=== PATIENT | male | born 1955 | race Two or more races ===

== ENCOUNTER 2017-07-07 05:53 | Inpatient (IN) | payer MEDICARE, MEDICAID ==
[~2017-07-07] VITALS: Ht 181.6 cm; Wt 90.7 kg
[2017-07-07] VITALS (15 sets, daily range): BP systolic 101–138; BP diastolic 65–86
[~2017-07-07 05:53] MED LIST: CIALIS5 MG PO; IBUPROFEN600 MG ORAL; NAPROXEN250 M1 PO; OMEPRAZOLE40 M1 ORAL; WELLBUTRIN XL150 MG ORAL
[2017-07-07] MEDS ORDERED: ceFAZolin 1gm in D5W 55ml IVPB ONE (06:00)
--- NOTE | 2017-07-07 07:16 | Anethesia Preoperative Eval ---
Anesthesia Pre-op PMH/ROS General Date of Evaluation: Jul 07, 2017 Anesthesiologist: Eduardo ASA Score: ASA 2 Mallampati Score Class I : Soft palate, uvula, fauces, pillars visible Class II: Soft palate, uvula, fauces visible Class III: Soft palate, base of uvula visible Class IV: Only hard plate visible Mallampati Classification: Class II Surgeon: Ximena Diagnosis: BPH Surgical Procedure: TURP Anesthesia History: none Family History: no anesthesia problems Allergies: Coded Allergies: MEPERIDINE (Verified Allergy, Severe, 07/06/17) SWELLING OF PANCREAS Medications: see eMAR Past Medical History Cardiovascular: Denies: HTN, CAD, TN, valve dz, arrhythmia, other Pulmonary: Denies: asthma, COPD, KATEY, other Gastrointestinal/Genitourinary: Reports: GERD, other - BPH, Denies: CRI, ESRD Neurologic/Psychiatric: Reports: depression/anxiety, Denies: dementia, CVA, TIA, other Endocrine: Denies: DM, hypothyroidism, steroids, other HEENT: Denies: cataract (L), cataract (R), glaucoma, OSAGE (L), OSAGE (R), other Hematology/Immune: Denies: anemia, DVT, bleeding disorder, other Musculoskeletal/Integumentary: Denies: OA, RA, DJD, DDD, edema, other Other: obesity PSxH Narrative: lap appy, lap bailey, ex-lap Anesthesia Pre-op Phys. Exam Physician Exam Last Vital Signs Date Time Temp Pulse Resp B/P (MAP) Pulse Ox O2 Delivery O2 Flow Rate FiO2 07/07/17 06:30 98.8 70 17 125/71 97 Room Air Constitutional: NAD Cardiovascular: RRR Respiratory: CTA Airway Exam Mallampati Score: Class II MO: full ROM: full Anesthesia Pre-op A/P Labs see chart Studies Pre-op Studies: EKG - sr Risk Assessment & Plan Assessment: ASA II Plan: GA Status Change Before Surgery: No Pre-Antibiotics Drug: Ancef 2g Given Within 1 Hr of Incision: Yes Time Given: 07:45 CHANDNI BAÑUELOS M.D. Jul 07, 2017 07:16
[2017-07-07] MEDS ORDERED: NS Irrig 4000ml IRRIG ONE ×3 (07:30→10:04)
[2017-07-07] MEDS ORDERED: Lidocaine 1% MPF 10mg/ml 5ml ONE (07:30)
[2017-07-07] MEDS ORDERED: Midazolam 2mg/2ml Inj ONE (07:30)
[2017-07-07] MEDS ORDERED: fentaNYL 100 mcg/2 mL IV ONE (07:30)
[2017-07-07] MEDS ORDERED: Metoclopramide 10mg/2ml Inj ONE (07:30)
[2017-07-07] MEDS ORDERED: Dexamethasone 4mg/ml vial ONE (07:30)
[2017-07-07] MEDS ORDERED: LR 1000ml ONE (07:30)
[2017-07-07] MEDS ORDERED: Neostigmine 1mg/ml 10ml Inj ONE (07:30)
[2017-07-07] MEDS ORDERED: Sodium Chloride 10ml vial INJ ONE (07:30)
[2017-07-07] MEDS ORDERED: Propofol 200mg/20ml IV ONE (07:30)
[2017-07-07] MEDS ORDERED: Zemuron 50mg/5ml Inj IV ONE (07:30)
[2017-07-07] MEDS ORDERED: Sterile Water Irrig 1000ml IRRIG ONE (07:30)
--- NOTE | 2017-07-07 07:48 | Pre-Procedure Note/Attestation ---
Pre-Procedure Note/Attestation Complete Prior to Procedure Planned Procedure: not applicable Procedure Narrative: TURP Indications for Procedure Pre-Operative Diagnosis: BPH Attestation I attest that I discussed the nature of the procedure; its benefits; risks and complications; and alternatives (and the risks and benefits of such alternatives ), prior to the procedure, with the patient (or the patient's legal credit and collections representative). I attest that, if there was a reasonable possibility of needing a blood transfusion, the patient (or the patient's legal credit and collections representative) was given the [facility] standardized written summary, pursuant to the [place] Blood Safety Act ([place] Health and Safety Code # 1645, as amended). I attest that I re-evaluated the patient just prior to the surgery and that there has been no change in the patient's H&P, except as documented below: Vasyl Bueno MD Jul 07, 2017 07:48
[2017-07-07] MEDS ORDERED: Sterile Water For Inj 1000ml IV ONE (08:00)
[2017-07-07] MEDS ORDERED: LR 1000ml 1,000 ML IVLG SCH (08:08)
--- NOTE | 2017-07-07 08:08 | Immediate Post-Op Evaluation ---
Immediate Post-Op Evalulation Immediate Post-Op Evalulation Procedure: TURP Date of Evaluation: Jul 07, 2017 Time of Evaluation: 09:58 IV Fluids: 1.5L Blood Products: 0 Estimated Blood Loss: 350 Urinary Output: 0 Blood Pressure Systolic: 102 Blood Pressure Diastolic: 68 Pulse Rate: 86 Respiratory Rate: 16 O2 Sat by Pulse Oximetry: 99 Temperature (Fahrenheit): 97 Pain Score (1-10): 0 Nausea: No Vomiting: No Complications 0 Patient Status: awake, reacts, patent, none Hydration Status: adequate Drug: Ancef 2g Given Within 1 Hr of Incision: Yes Time Given: 07:45 CHANDNI BAÑUELOS M.D. Jul 07, 2017 08:08
[2017-07-07] MEDS ORDERED: LORazepam Inj 2mg/ml 1ml IV PRN (08:15)
[2017-07-07] MEDS ORDERED: Hydromorphone 0.5mg/0.5ml inj IVP PRN (08:15)
[2017-07-07] MEDS ORDERED: DiphenhydrAMINE 50mg/ml Inj IVP PRN (08:15)
[2017-07-07] MEDS ORDERED: Metoclopramide 10mg/2ml Inj IVP PRN (08:15)
[2017-07-07] MEDS ORDERED: Midazolam 2mg/2ml Inj IVP PRN (08:15)
[2017-07-07] MEDS: D5 1/2NS w/KCl 20mEq 1,000 ML IV SCH ×2 (09:35→19:35)
--- NOTE | 2017-07-07 09:39 | Brief Operative Note ---
Immediate Post Operative Note Operative Note Pre-op Diagnosis: BPH Procedure: TURP Post-op Diagnosis: same Post-op Diagnosis: same as pre-op Surgeon: Shashank Bueno Anesthesia: general Specimen: yes Complications: none Condition: stable Fluids: 500 Estimated Blood Loss: minimal Implant(s) used?: No Vasyl Bueno MD Jul 07, 2017 09:39
[2017-07-07] MEDS ORDERED: HYDROmorphone 1mg/ml Carpuject IVP PRN (09:45)
[2017-07-07 10:23] LABS: BASOPHILS % (AUTO) 0.3 % (0.0-2.0); EOSINOPHILS % (AUTO) 0.6 % (0.0-3.0); LYMPHOCYTES % (AUTO) 16.6 % (20.0-45.0); MEAN CORPUSCULAR HEMOGLOBIN 29.8 PG (27.0-31.0); MEAN CORPUSCULAR HGB CONC 31.7 G/DL (32.0-36.0); MEAN CORPUSCULAR VOLUME 94 FL (80-99); MONOCYTES % (AUTO) 3.1 % (1.0-10.0); NEUTROPHILS % (AUTO) 79.4 % (45.0-75.0); PLATELET COUNT 205 K/UL (150-450); RED BLOOD COUNT 4.36 M/UL (4.70-6.10); RED CELL DISTRIBUTION WIDTH 11.2 % (11.6-14.8); WHITE BLOOD COUNT 17.8 K/UL (4.8-10.8)
[2017-07-07 10:33] LABS: ANION GAP 7 mmol/L (5-15); CALCIUM 7.7 MG/DL (8.5-10.1); CARBON DIOXIDE 26 MMOL/L (21-32); CHLORIDE 110 MMOL/L (98-107); CREATININE 1.2 MG/DL (0.55-1.30); GLOMERULAR FILTRATION RATE > 60 mL/min (>60); POTASSIUM 4.5 MMOL/L (3.5-5.1); SODIUM 142 MMOL/L (136-145)
--- NOTE | 2017-07-07 14:53 | History and Physical ---
History of Present Illness General Date patient seen: Jul 07, 2017 Present Illness HPI 62 year old male with hx of BPH, depression, had a TURP today and admitted for postop care. Pt has a Esposito and needs continuous irrigation. Allergies: Coded Allergies: MEPERIDINE (Verified Allergy, Severe, 07/06/17) SWELLING OF PANCREAS Medication History Scheduled Bupropion Hcl* (Wellbutrin Xl*), 150 MG ORAL DAILY, (Reported) Ibuprofen* (Motrin*), 600 MG ORAL FOUR TIMES A DAY, (Reported) Naproxen (Naproxen), 500 MG PO BID, (Reported) Omeprazole (Omeprazole), 40 MG ORAL DAILY, (Reported) Tadalafil (Cialis), 5 MG PO DAILY, (Reported) Patient History Healthcare decision maker MICHAEL ANDRADE-SISTER- Resuscitation status Full Code Advanced Directive on File Past Medical/Surgical History Past Medical/Surgical History: (1) BPH (benign prostatic hyperplasia) Review of Systems All Other Systems: negative except mentioned in HPI Physical Exam General Appearance: WD/WN HEENT: normocephalic, atraumatic Neck: non-tender, normal alignment Breasts: no masses Cardiovascular/Chest: normal peripheral pulses Abdomen: normal bowel sounds, non tender Genitourinary/Rectal: normal genital exam, normal rectal exam Last 24 Hour Vital Signs Date Time Temp Pulse Resp B/P (MAP) Pulse Ox O2 Delivery O2 Flow Rate FiO2 07/07/17 13:00 98.7 81 19 124/75 98 07/07/17 12:00 97.7 76 19 128/78 99 07/07/17 11:30 97.6 07/07/17 11:30 97.3 63 18 120/78 99 07/07/17 11:00 97.6 66 14 136/84 99 Nasal Cannula 3.0 07/07/17 10:50 68 14 138/80 99 Nasal Cannula 3.0 07/07/17 10:40 68 14 133/86 99 Nasal Cannula 3.0 07/07/17 10:30 69 13 120/74 99 Nasal Cannula 3.0 07/07/17 10:20 76 18 118/81 99 Nasal Cannula 3.0 07/07/17 10:15 72 19 118/77 99 Nasal Cannula 3.0 07/07/17 10:05 74 17 101/78 97 Nasal Cannula 3.0 07/07/17 10:00 77 14 106/67 96 Nasal Cannula 3.0 07/07/17 09:56 86 16 99 07/07/17 09:53 97.0 79 14 112/72 98 Nasal Cannula 3.0 07/07/17 06:30 98.8 70 17 125/71 97 Room Air Intake and Output 07/07/17 07/08/17 19:00 07:00 Intake Total 2500 ml Output Total 2775 ml Balance -275 ml Intake IV Total 2500 ml Output Urine Total 2425 ml Estimated Blood Loss 350 ml # Voids 2 Laboratory Tests Test 07/07/17 10:15 White Blood Count 17.8 K/UL (4.8-10.8) H Red Blood Count 4.36 M/UL (4.70-6.10) L Hemoglobin 13.0 G/DL (14.2-18.0) L Hematocrit 40.9 % (42.0-52.0) L Mean Corpuscular Volume 94 FL (80-99) Mean Corpuscular Hemoglobin 29.8 PG (27.0-31.0) Mean Corpuscular Hemoglobin Concent 31.7 G/DL (32.0-36.0) L Red Cell Distribution Width 11.2 % (11.6-14.8) L Platelet Count 205 K/UL (150-450) Mean Platelet Volume 8.0 FL (6.5-10.1) Neutrophils (%) (Auto) 79.4 % (45.0-75.0) H Lymphocytes (%) (Auto) 16.6 % (20.0-45.0) L Monocytes (%) (Auto) 3.1 % (1.0-10.0) Eosinophils (%) (Auto) 0.6 % (0.0-3.0) Basophils (%) (Auto) 0.3 % (0.0-2.0) Sodium Level 142 MMOL/L (136-145) Potassium Level 4.5 MMOL/L (3.5-5.1) Chloride Level 110 MMOL/L (98-107) H Carbon Dioxide Level 26 MMOL/L (21-32) Anion Gap 7 mmol/L (5-15) Blood Urea Nitrogen 24 mg/dL (7-18) H Creatinine 1.2 MG/DL (0.55-1.30) Estimat Glomerular Filtration Rate > 60 mL/min (>60) Glucose Level 119 MG/DL (74-106) H Calcium Level 7.7 MG/DL (8.5-10.1) L Height (Feet): 5 Height (Inches): 11.50 Weight (Pounds): 200 Medications Current Medications Medications (Trade) Dose Ordered Sig/Navin Route PRN Reason Start Time Stop Time Status Last Admin Dose Admin Acetaminophen (Tylenol) 650 mg Q6H PRN ORAL Mild Pain (Pain Scale 1-3) 07/07/17 09:45 08/06/17 09:44 Acetaminophen/ Hydrocodone Bitart ([place] 5/325) 1 tab Q4H PRN ORAL Moderate Pain (Pain Scale 4-6) 07/07/17 09:45 07/14/17 09:44 Cefazolin Sodium 50 ml @ 100 mls/hr Q8H IV 07/07/17 15:00 07/07/17 23:29 Dextrose/ Electrolytes 1,000 ml @ 100 mls/hr Q10H IV 07/07/17 09:35 08/06/17 09:34 Docusate Sodium (Colace) 100 mg TWICE A DAY ORAL 07/07/17 18:00 08/06/17 17:59 Hydromorphone HCl (Dilaudid) 1 mg Q3H PRN IVP pain score 4-6 07/07/17 09:45 07/14/17 09:44 Ondansetron HCl (Zofran) 4 mg Q6H PRN IVP Nausea & Vomiting 07/07/17 09:45 08/06/17 09:44 Temazepam (Restoril) 7.5 mg DAILYPRN PRN ORAL Insomnia 07/07/17 09:45 07/14/17 09:44 Assessment/Plan Problem List: (1) S/P TURP ICD Codes: Z90.79 - Acquired absence of other genital organ(s) SNOMED: 64288656, 585121251 (2) BPH (benign prostatic hyperplasia) ICD Codes: N40.0 - Benign prostatic hyperplasia without lower urinary tract symptoms SNOMED: 448109609 Assessment/Plan iv fluids frequent irrigation symptomatic treatment clear liquid diet for now. JAYLEEN JIMÉNEZ Jul 07, 2017 14:53
[2017-07-07] MEDS ORDERED: ceFAZolin sod 2 GM in D5W 110 ML IV SCH (15:00)
[2017-07-07] MEDS: Norco 5mg/325mg tab ORAL PRN ×2 (15:18→20:27)
[2017-07-07] MEDS: ceFAZolin 2gm/50ml Premix 50 ML IV SCH ×2 (15:19→23:14)
[2017-07-07] MEDS: Docusate 100mg cap ORAL SCH (17:31)
[2017-07-08] MEDS: Norco 5mg/325mg tab ORAL PRN ×3 (00:39→13:04)
[2017-07-08 00:48] VITALS: BP 101/61
[2017-07-08 04:22] VITALS: BP 107/66
[2017-07-08] MEDS: D5 1/2NS w/KCl 20mEq 1,000 ML IV SCH (05:51)
[2017-07-08 06:52] LABS: BASOPHILS % (AUTO) 0.3 % (0.0-2.0); EOSINOPHILS % (AUTO) 1.4 % (0.0-3.0); LYMPHOCYTES % (AUTO) 14.4 % (20.0-45.0); MEAN CORPUSCULAR HEMOGLOBIN 30.9 PG (27.0-31.0); MEAN CORPUSCULAR HGB CONC 33.7 G/DL (32.0-36.0); MEAN CORPUSCULAR VOLUME 92 FL (80-99); MEAN PLATELET VOLUME 8.2 FL (6.5-10.1); NEUTROPHILS % (AUTO) 76.9 % (45.0-75.0); PLATELET COUNT 195 K/UL (150-450); RED BLOOD COUNT 4.05 M/UL (4.70-6.10); WHITE BLOOD COUNT 13.2 K/UL (4.8-10.8)
[2017-07-08 07:04] LABS: ANION GAP 7 mmol/L (5-15); CALCIUM 8.5 MG/DL (8.5-10.1); CARBON DIOXIDE 28 MMOL/L (21-32); CHLORIDE 105 MMOL/L (98-107); CREATININE 1.2 MG/DL (0.55-1.30); GLOMERULAR FILTRATION RATE > 60 mL/min (>60); POTASSIUM 3.8 MMOL/L (3.5-5.1); SODIUM 140 MMOL/L (136-145)
[2017-07-08] MEDS: Sucralfate 1gm tab ORAL SCH ×2 (08:33→13:03)
[2017-07-08] MEDS: Docusate 100mg cap ORAL SCH (08:34)
[2017-07-08 09:00] VITALS: BP 122/74
[2017-07-08 12:00] VITALS: BP 139/92
--- NOTE | 2017-07-08 13:42 | Pulmonology Progress Note ---
Assessment/Plan Problems: (1) S/P TURP (2) BPH (benign prostatic hyperplasia) Assessment/Plan improving still bloody urine sabillon in place dc home with oral abx and analgesics. Subjective ROS Limited/Unobtainable: No HEENT: Repors: no symptoms Respiratory: Reports: no symptoms Allergies: Coded Allergies: MEPERIDINE (Verified Allergy, Severe, 07/06/17) SWELLING OF PANCREAS Objective Last 24 Hour Vital Signs Date Time Temp Pulse Resp B/P (MAP) Pulse Ox O2 Delivery O2 Flow Rate FiO2 07/08/17 12:00 97.6 84 18 139/92 96 07/08/17 09:02 97.0 07/08/17 09:00 97.0 83 17 122/74 97 Room Air 07/08/17 04:22 97.6 80 19 107/66 96 07/08/17 00:48 Room Air 07/08/17 00:48 97.9 80 18 101/61 94 07/07/17 20:45 97.1 78 18 107/67 96 07/07/17 20:45 Room Air 07/07/17 16:04 97.8 79 18 102/65 97 Intake and Output 07/08/17 07/09/17 19:00 07:00 Intake Total 1950 ml Output Total 3500 ml Balance -1550 ml Intake Oral 250 ml IV Total 200 ml Other 1500 ml Output Urine Total 3500 ml General Appearance: WD/WN HEENT: normocephalic, anicteric Respiratory/Chest: chest wall non-tender, lungs clear Cardiovascular: normal peripheral pulses, normal rate Abdomen: normal bowel sounds, no organomegaly Genitourinary: normal external genitalia Extremities: no clubbing Skin: no ulcers Neurologic/Psychiatric: no motor/sensory deficits Lymphatic: no neck adenopathy Laboratory Tests 07/08/17 05:25: White Blood Count 13.2H, Red Blood Count 4.05L, Hemoglobin 12.5L, Hematocrit 37.2L, Mean Corpuscular Volume 92, Mean Corpuscular Hemoglobin 30.9, Mean Corpuscular Hemoglobin Concent 33.7, Red Cell Distribution Width 11.0L, Platelet Count 195, Mean Platelet Volume 8.2, Neutrophils (%) (Auto) 76.9H, Lymphocytes (%) (Auto) 14.4L, Monocytes (%) (Auto) 7.0, Eosinophils (%) (Auto) 1.4, Basophils (%) (Auto) 0.3, Sodium Level 140, Potassium Level 3.8, Chloride Level 105, Carbon Dioxide Level 28, Anion Gap 7, Blood Urea Nitrogen 13, Creatinine 1.2, Estimat Glomerular Filtration Rate > 60, Glucose Level 139H, Calcium Level 8.5 Current Medications Medications (Trade) Dose Ordered Sig/Navin Route PRN Reason Start Time Stop Time Status Last Admin Dose Admin Acetaminophen (Tylenol) 650 mg Q6H PRN ORAL Mild Pain (Pain Scale 1-3) 07/07/17 09:45 08/06/17 09:44 Acetaminophen/ Hydrocodone Bitart ([place] 5/325) 1 tab Q4H PRN ORAL Moderate Pain (Pain Scale 4-6) 07/07/17 09:45 07/14/17 09:44 07/08/17 13:04 Dextrose/ Electrolytes 1,000 ml @ 100 mls/hr Q10H IV 07/07/17 09:35 08/06/17 09:34 07/08/17 05:51 Docusate Sodium (Colace) 100 mg TWICE A DAY ORAL 07/07/17 18:00 08/06/17 17:59 07/08/17 08:34 Hydromorphone HCl (Dilaudid) 1 mg Q3H PRN IVP pain score 4-6 07/07/17 09:45 07/14/17 09:44 Ondansetron HCl (Zofran) 4 mg Q6H PRN IVP Nausea & Vomiting 07/07/17 09:45 08/06/17 09:44 07/07/17 20:27 Pantoprazole (Protonix) 40 mg DAILY ORAL 07/08/17 09:00 08/07/17 08:59 07/08/17 08:34 Sucralfate (Carafate) 1 gm TID ORAL 07/08/17 09:00 08/07/17 08:59 07/08/17 13:03 Temazepam (Restoril) 7.5 mg DAILYPRN PRN ORAL Insomnia 07/07/17 09:45 07/14/17 09:44 JAYLEEN JIMÉNEZ Jul 08, 2017 13:42
--- NOTE | 2017-07-08 14:29 | 48 Hour Post Anesthesia Eval ---
Post Anesthesia Evaluation Procedure: TURP Date of Evaluation: Jul 08, 2017 Time of Evaluation: 14:30 Blood Pressure Systolic: 125 0: 63 Pulse Rate: 80 Respiratory Rate: 19 Temperature (Fahrenheit): 98 O2 Sat by Pulse Oximetry: 99 Airway: patent Nausea: No Vomiting: No Pain Intensity: 0 Hydration Status: adequate Mental Status/LOC: patient returned to baseline Post-Anesthesia Complications: none Follow-up care needed: patient intructions given Dmitry Duenas M.D. Jul 08, 2017 14:29
[2017-07-08] MEDS ORDERED: NORCO 5-325 TA1 EAC1 ORAL (15:25)
[2017-07-08] MEDS ORDERED: LEVOFLOXACIN250 MG ORAL (15:27)
[2017-07-08] MEDS ORDERED: COLACE100 MG ORAL (15:29)
[2017-07-08 16:00] VITALS: BP 116/74
[2017-07-08] MEDS ORDERED: LR 1000ml ONE (16:17)
[2017-07-08] MEDS ORDERED: NS Irrig 4000ml IRRIG ONE (16:17)
[2017-07-08] MEDS ORDERED: Tubing IV Secondary IV ONE (16:17)
--- NOTE | 2017-07-09 09:54 | Discharge Summary ---
Discharge Summary Hospital Course Date of Admission Jul 07, 2017 at 05:53 Date of Discharge Jul 08, 2017 at 16:30 Admitting Diagnosis HPI Yimi Oneil is a 62 year old male who was admitted on Jul 07, 2017 at 05:53 for Enlarged Prostate,Incomplete Bladder Emptying Hospital Course [id number] Discharge Discharge Disposition Patient was discharged to Home (01) Discharge Diagnoses: Nallely Ashby NP Jul 09, 2017 09:54
--- NOTE | 2017-07-09 22:00 | Discharge Summary 2 SIG ---
DATE OF ADMISSION: 07/07/2017 DATE OF DISCHARGE: 07/08/2017 SURGEON: Dr. Vasyl Bueno. BRIEF HOSPITAL COURSE: The patient is a 62-year-old male with history of BPH and depression, who was admitted on 07/07/2017, and underwent TURP by Dr. Bueno. Postoperatively, he was admitted to medical floor. He was given bladder irrigation and was placed on bed rest. He was given pain management. He was encouraged to use incentive spirometry. He complained of heart burn. He was given carafate and Protonix. Bloody urine eventually cleared. Bladder irrigation was discontinued. He was eventually discharged home with Esposito catheter. Leg bag was placed. He was advised to follow up with Dr. Bueno and to continue with p.o. antibiotic for five more days. FINAL DIAGNOSES: 1. Benign prostatic hypertrophy, status post transurethral resection of prostate. 2. Depression. DISCHARGE MEDICATIONS: Continue with levofloxacin 250 mg p.o. x5 days and [place] 5/325 q.8 hours p.r.n. pain. Continue with docusate and Wellbutrin XL 150 mg daily. Newton Salcedo M.D. I have been assigned to dictate discharge summary on this account and I was not involved in the patient's management. Nallely Ashby N.P. DR: Karsten JOB#: [id number] CC: SARA
--- NOTE | 2017-07-09 23:45 | Operative Note - Dictated ---
DATE OF OPERATION: 07/09/2017 PREOPERATIVE DIAGNOSES: 1. Benign prostatic hypertrophy. 2. Urinary retention. POSTOPERATIVE DIAGNOSES: 1. Benign prostatic hypertrophy. 2. Urinary retention. OPERATION: Transurethral resection of the prostate. SURGEON: Vasyl Bueno M.D. ANESTHESIA: General. FINDINGS: Enlarged prostate. INDICATION FOR SURGERY: Chronic BPH without improvement with medications. Treatment options were explained to him in great length including all potential complications and he signed the consent. DESCRIPTION OF PROCEDURE: He was brought to the operating room, placed in lithotomy position, and prepped and draped in standard fashion under general anesthesia. Resectoscope was introduced into the bladder and prostate was found and resected in all three quadrants, all the way to the verumontanum and prosthetic capsule. The chips were evacuated with LegCyte evacuator. Hemostasis with the button electrode and a 24 three-way Esposito catheter was placed and left indwelling. The patient tolerated the procedure well. Sponge count and instrument count was correct. Vasyl Bueno M.D. DR: Dago JOB#: [id number] CC:
== END 2017-07-08 16:30 | disposition home health service (06) | DRG 714 ==
LOC: SDSOVERFLO 05:53 → 3E 12:23
PROC: 0VT08ZZ Resection of Prostate, Via Natural or Artificial Opening Endoscopic (ICD-10-PCS; principal; 2017-07-08)
DX: N40.1 Benign prostatic hyperplasia with lower urinary tract symptoms (principal); F32.9 Major depressive disorder, single episode, unspecified; R33.8 Other retention of urine; F17.200 Nicotine dependence, unspecified, uncomplicated; Z88.8 Allergy status to other drugs, medicaments and biological substances
CPT/HCPCS: 36415; 80048; 85025; 87081; 94003; 94150; J2250; J2405; J2710; J2765

== ENCOUNTER 2020-06-05 05:14 | Inpatient (IN) | payer MEDICARE ==
[~2020-06-05] VITALS: Ht 180.3 cm; Wt 90.3 kg
[2020-06-05] VITALS (15 sets, daily range): BP systolic 110–157; BP diastolic 65–92
[~2020-06-05 05:14] MED LIST changes: +COLACE100 MG ORAL; +LEVOFLOXACIN250 MG ORAL; +NORCO 5-325 TA1 EAC1 ORAL
[2020-06-05] MEDS ORDERED: LIPITOR20 MG ORAL (05:57)
[2020-06-05] MEDS ORDERED: ceFAZolin sod 1 GM in NS 55 ML IVPB ONE (07:00)
[2020-06-05] MEDS ORDERED: Sodium Chloride 10ml vial INJ ONE (07:10)
[2020-06-05] MEDS ORDERED: Lidocaine 1% MPF 10mg/ml 5ml ONE (07:10)
[2020-06-05] MEDS ORDERED: fentaNYL 100 mcg/2 mL IV ONE (07:13)
[2020-06-05] MEDS ORDERED: Lidocaine 1% Plain 30 ml INJ ONE (07:14)
--- NOTE | 2020-06-05 07:14 | Anethesia Preoperative Eval ---
Anesthesia Pre-op PMH/ROS General Date of Evaluation: Jun 05, 2020 Time of Evaluation: 07:41 Anesthesiologist: Maulik ASA Score: ASA 3 Mallampati Score Class I : Soft palate, uvula, fauces, pillars visible Class II: Soft palate, uvula, fauces visible Class III: Soft palate, base of uvula visible Class IV: Only hard plate visible Mallampati Classification: Class II Surgeon: Ximena Diagnosis: BPH Surgical Procedure: TURP Anesthesia History: none Family History: no anesthesia problems Allergies: Coded Allergies: MEPERIDINE (Verified Allergy, Intermediate, pancrease, 06/04/20) SWELLING OF PANCREAS Medications: see eMAR Patient NPO?: Yes Past Medical History Cardiovascular: Reports: HTN Gastrointestinal/Genitourinary: Reports: GERD, other - BPH Musculoskeletal/Integumentary: Reports: other - Back Pain Other: obesity - BMI 30 PSxH Narrative: Appendectomy, Cholecystectomy, S/P TURP Anesthesia Pre-op Phys. Exam Physician Exam Last Vital Signs Date Time Temp Pulse Resp B/P (MAP) Pulse Ox O2 Delivery O2 Flow Rate FiO2 06/05/20 06:00 Room Air 06/05/20 05:51 97.3 66 18 110/65 (80) 99 Constitutional: NAD Neurologic: CN 2-12 intact Cardiovascular: RRR Respiratory: CTA Gastrointestinal: S/NT/ND Airway Exam Mallampati Score: Class II MO: full ROM: full Teeth: missing, intact Anesthesia Pre-op A/P Risk Assessment & Plan Assessment: ASA 3 Plan: GA, SED, GlideScope Status Change Before Surgery: No Pre-Antibiotics Dru Grams Ancef IV Given Within 1 Hr of Incision: Yes Time Given: 08:06 Kashif Willingham MD Jun 05, 2020 07:14
[2020-06-05] MEDS ORDERED: DiphenhydrAMINE 50mg/ml Inj IVP PRN (07:15)
[2020-06-05] MEDS ORDERED: Labetalol 5mg/ml 20ml vial IV PRN (07:15)
[2020-06-05] MEDS ORDERED: HYDROcodone/Acetamin 5/325 tab ORAL PRN ×2 (07:15→10:45)
[2020-06-05] MEDS ORDERED: LR 1000ml 1,000 ML IVLG SCH (07:15)
[2020-06-05] MEDS ORDERED: Midazolam 2mg/2ml Inj IVP PRN (07:15)
[2020-06-05] MEDS ORDERED: Acetaminophen (Non formulary) 100 ML IV ONE (07:15)
[2020-06-05] MEDS ORDERED: Atropine Sulfate 0.4mg/ml inj IVP PRN (07:15)
[2020-06-05] MEDS ORDERED: Hydromorphone 0.5mg/0.5ml inj IVP PRN (07:15)
[2020-06-05] MEDS ORDERED: HYDROcodone/Acetamin 7.5/325 tab ORAL PRN (07:15)
[2020-06-05] MEDS ORDERED: Ketorolac 30mg Inj IV PRN ×2 (07:15)
[2020-06-05] MEDS ORDERED: Metoclopramide 10mg/2ml Inj IVP PRN (07:15)
[2020-06-05] MEDS ORDERED: LORazepam Inj 2mg/ml 1ml IV PRN (07:15)
[2020-06-05] MEDS ORDERED: oxyCODONE HCL/Acetaminophen 5/325mg ORAL PRN (07:15)
--- NOTE | 2020-06-05 07:15 | Immediate Post-Op Evaluation ---
Immediate Post-Op Evalulation Immediate Post-Op Evalulation Procedure: TURP Date of Evaluation: Jun 05, 2020 Time of Evaluation: 09:34 IV Fluids: 1200 LR Blood Products: 0 Estimated Blood Loss: 50 Urinary Output: 0 Blood Pressure Systolic: 155 Blood Pressure Diastolic: 93 Pulse Rate: 75 Respiratory Rate: 16 O2 Sat by Pulse Oximetry: 100 Temperature (Fahrenheit): 97.3 Pain Score (1-10): 2 Nausea: No Vomiting: No Complications 0 Patient Status: awake, reacts, patent, extubated, none Hydration Status: adequate Dru grams Ancef IV Given Within 1 Hr of Incision: Yes Time Given: 08:06 Kashif Willingham MD Jun 05, 2020 07:15
[2020-06-05] MEDS ORDERED: NS Irrig 3000ml IRRIG ONE ×11 (07:56→15:27)
--- NOTE | 2020-06-05 08:00 | Pre-Procedure Note/Attestation ---
Pre-Procedure Note/Attestation Complete Prior to Procedure Planned Procedure: not applicable Procedure Narrative: TURP Indications for Procedure Pre-Operative Diagnosis: BPH Attestation I attest that I discussed the nature of the procedure; its benefits; risks and complications; and alternatives (and the risks and benefits of such alternatives), prior to the procedure, with the patient (or the patient's legal entry level account representative). I attest that, if there was a reasonable possibility of needing a blood transfusion, the patient (or the patient's legal entry level account representative) was given the [facility] standardized written summary, pursuant to the [place] Blood Safety Act ([place] Health and Safety Code # 1645, as amended). I attest that I re-evaluated the patient just prior to the surgery and that there has been no change in the patient's H&P, except as documented below: Vasyl Bueno MD Jun 05, 2020 07:59
[2020-06-05] MEDS ORDERED: Neostigmine 1mg/ml 10ml Inj ONE (08:56)
[2020-06-05] MEDS ORDERED: Glycopyrrolate 0.2mg/ml 1ml Vial ONE (08:56)
[2020-06-05 10:07] LABS: BASOPHILS % (AUTO) 0.4 % (0.0-2.0); HEMATOCRIT 43.4 % (42.0-52.0); HEMOGLOBIN 14.5 G/DL (14.2-18.0); LYMPHOCYTES % (AUTO) 15.3 % (20.0-45.0); MEAN CORPUSCULAR VOLUME 94 FL (80-99); MONOCYTES % (AUTO) 3.6 % (1.0-10.0); NEUTROPHILS % (AUTO) 79.7 % (45.0-75.0); PLATELET COUNT 241 K/UL (150-450); RED CELL DISTRIBUTION WIDTH 12.3 % (11.6-14.8); WHITE BLOOD COUNT 12.8 K/UL (4.8-10.8)
[2020-06-05 10:28] LABS: ANION GAP 6 mmol/L (5-15); BLOOD UREA NITROGEN 13 mg/dL (7-18); CALCIUM 7.7 MG/DL (8.5-10.1); CARBON DIOXIDE 25 MMOL/L (21-32); CHLORIDE 109 MMOL/L (98-107); CREATININE 1.1 MG/DL (0.55-1.30); POTASSIUM 4.3 MMOL/L (3.5-5.1); SODIUM 140 MMOL/L (136-145)
--- NOTE | 2020-06-05 11:12 | Brief Operative Note ---
Immediate Post Operative Note Operative Note Pre-op Diagnosis: BPH Procedure: TURP Post-op Diagnosis: same Post-op Diagnosis: same as pre-op Surgeon: Shashank Bueno Anesthesia: general Specimen: yes Complications: none Condition: stable Fluids: 1000 Estimated Blood Loss: minimal Implant(s) used?: No Vasyl Bueno MD Jun 05, 2020 11:12
[2020-06-05] MEDS: HYDROmorphone 1mg/ml Carpuject IVP PRN ×3 (11:55→22:04)
[2020-06-05] MEDS: D5 1/2NS w/KCl 20mEq 1,000 ML IV SCH ×2 (13:03→23:01)
[2020-06-05] MEDS: ceFAZolin 2gm/50ml Premix 50 ML IV SCH ×2 (15:49→23:01)
[2020-06-05] MEDS: Docusate 100mg cap ORAL SCH ×2 (17:48→17:50)
[2020-06-06] VITALS: BP 108/69
[2020-06-06 04:59] VITALS: BP 120/72
[2020-06-06 07:08] LABS: BLOOD UREA NITROGEN 11 mg/dL (7-18); CALCIUM 7.9 MG/DL (8.5-10.1); CARBON DIOXIDE 25 MMOL/L (21-32); CHLORIDE 107 MMOL/L (98-107); CREATININE 1.1 MG/DL (0.55-1.30); POTASSIUM 3.9 MMOL/L (3.5-5.1); SODIUM 140 MMOL/L (136-145)
[2020-06-06 07:18] LABS: BASOPHILS % (AUTO) 0.5 % (0.0-2.0); EOSINOPHILS % (AUTO) 0.7 % (0.0-3.0); HEMATOCRIT 41.4 % (42.0-52.0); HEMOGLOBIN 14.1 G/DL (14.2-18.0); LYMPHOCYTES % (AUTO) 13.9 % (20.0-45.0); MEAN CORPUSCULAR VOLUME 93 FL (80-99); NEUTROPHILS % (AUTO) 77.9 % (45.0-75.0); PLATELET COUNT 227 K/UL (150-450); RED BLOOD COUNT 4.44 M/UL (4.70-6.10); RED CELL DISTRIBUTION WIDTH 11.7 % (11.6-14.8); WHITE BLOOD COUNT 16.5 K/UL (4.8-10.8)
[2020-06-06 08:00] VITALS: BP 120/72
--- NOTE | 2020-06-06 08:33 | 48 Hour Post Anesthesia Eval ---
Post Anesthesia Evaluation Procedure: TURP Date of Evaluation: Jun 06, 2020 Time of Evaluation: 08:31 Blood Pressure Systolic: 124 0: 76 Pulse Rate: 68 Respiratory Rate: 20 Temperature (Fahrenheit): 97.6 O2 Sat by Pulse Oximetry: 98 Airway: patent Nausea: No Vomiting: No Pain Intensity: 2 Hydration Status: adequate Cardiopulmonary Status: stable Mental Status/LOC: patient returned to baseline Follow-up Care/Observations: n/a Post-Anesthesia Complications: none Follow-up care needed: ready to discharge Earl Morales MD Jun 06, 2020 08:33
[2020-06-06] MEDS: Docusate 100mg cap ORAL SCH ×2 (08:45→17:21)
[2020-06-06] MEDS: D5 1/2NS w/KCl 20mEq 1,000 ML IV SCH (08:45)
[2020-06-06] MEDS ORDERED: Lactulose 20gm/30ml UDC ORAL SCH (10:00)
--- NOTE | 2020-06-06 10:15 | Consultation ---
DATE OF CONSULTATION: 06/06/2020 INTERNAL MEDICINE CONSULTATION HISTORY OF PRESENT ILLNESS: This is a 64-year-old male who was undergone TURP yesterday by Dr. Vasyl Bueno. The surgery was uncomplicated. The patient has a CBI in place and is doing well. This morning, he states he is feeling well. irritated with the catheter in place. Hemoglobin has remained essentially unchanged since yesterday, it [place] 14.1[place] [address] and his creatinine is unchanged at 1.1. He states he is feeling well. PAST MEDICAL HISTORY: Hyperlipidemia, previous tobacco usage. HOME MEDICATIONS: Although listed as containing omeprazole, Viagra, NicoDerm, Naprosyn, Lipitor, Ventolin, and Tylenol, he states he is not taking any medication for the last three months. ALLERGIES: None. PAST SURGICAL HISTORY: TURP. REVIEW OF SYSTEMS: Denies any headaches, hematemesis, melena, hematochezia, night sweats, or weight loss. PHYSICAL EXAMINATION: GENERAL: Reveals a 64-year-old male. HEENT: Unremarkable. CHEST: Clear breath sounds bilaterally. ABDOMEN: Soft. GENITOURINARY: Esposito catheter is in place. EXTREMITIES: There is no edema. NEUROLOGIC: Nonfocal. LABORATORY AND DIAGNOSTIC DATA: Lab testing discussed above. Preoperative testing including EKG and x-ray chest has been negative. IMPRESSION: 1. Postop day #1 normal status post TURP. 2. History of hyperlipidemia. 3. Smoker. DISCUSSION: We will continue CBI as urine is still quite pink. We will check labs in a.m. No current medications. He has mild leukocytosis; therefore, we will continue antibiotics for another 24 hours. He is on Ancef. We will give a dose of Levaquin today. We will follow. Zak Francisco M.D. DR: Kaley JOB#: [id number] CC:
[2020-06-06] MEDS: Tums 500mg ORAL PRN ×2 (11:07→17:21)
[2020-06-06] MEDS: Levofloxacin 500mg tab ORAL SCH (11:07)
[2020-06-06 12:00] VITALS: BP 123/70
[2020-06-06] MEDS ORDERED: NS Irrig 3000ml IRRIG ONE ×2 (13:11→21:01)
[2020-06-06 16:00] VITALS: BP 118/74
[2020-06-06 20:00] VITALS: BP 130/77
[2020-06-06] MEDS ORDERED: Atorvastatin 20mg tab ORAL SCH (21:00)
[2020-06-07 04:00] VITALS: BP 126/83
[2020-06-07 05:48] LABS: BASOPHILS % (AUTO) 0.8 % (0.0-2.0); EOSINOPHILS % (AUTO) 4.8 % (0.0-3.0); HEMATOCRIT 40.5 % (42.0-52.0); HEMOGLOBIN 13.7 G/DL (14.2-18.0); LYMPHOCYTES % (AUTO) 22.5 % (20.0-45.0); MEAN CORPUSCULAR VOLUME 92 FL (80-99); MONOCYTES % (AUTO) 7.4 % (1.0-10.0); NEUTROPHILS % (AUTO) 64.4 % (45.0-75.0); PLATELET COUNT 232 K/UL (150-450); RED CELL DISTRIBUTION WIDTH 12.1 % (11.6-14.8); WHITE BLOOD COUNT 10.8 K/UL (4.8-10.8)
[2020-06-07 06:03] LABS: BLOOD UREA NITROGEN 11 mg/dL (7-18); CARBON DIOXIDE 21 MMOL/L (21-32); CHLORIDE 107 MMOL/L (98-107); POTASSIUM 3.7 MMOL/L (3.5-5.1); SODIUM 140 MMOL/L (136-145)
[2020-06-07] MEDS ORDERED: LR 1000ml ONE (07:41)
[2020-06-07] MEDS ORDERED: Sterile Water Irrig 1000ml IRRIG ONE (07:41)
[2020-06-07 08:00] VITALS: BP 115/71
[2020-06-07] MEDS: Docusate 100mg cap ORAL SCH (08:32)
[2020-06-07] MEDS: Levofloxacin 500mg tab ORAL SCH (08:32)
--- NOTE | 2020-06-07 09:20 | Pulmonology Progress Note ---
Subjective Interval Events: CBI in place; has blood claots irrigated from sabillon yesterday Constitutional: Reports: no symptoms HEENT: Repors: no symptoms Respiratory: Reports: no symptoms Cardiovascular: Reports: no symptoms Gastrointestinal/Abdominal: Reports: no symptoms Genitourinary: Reports: no symptoms Neurologic: Reports: no symptoms Allergies: Coded Allergies: MEPERIDINE (Verified Allergy, Intermediate, pancrease, 06/04/20) SWELLING OF PANCREAS Objective Last 24 Hour Vital Signs Date Time Temp Pulse Resp B/P (MAP) Pulse Ox O2 Delivery O2 Flow Rate FiO2 06/07/20 08:00 98.2 72 18 115/71 (86) 98 06/07/20 04:00 98.4 69 18 126/83 (97) 98 06/06/20 21:00 Room Air 06/06/20 20:00 98.2 71 18 130/77 (94) 98 06/06/20 16:00 98.9 68 18 118/74 (89) 99 06/06/20 12:00 97.4 70 16 123/70 (87) 99 Intake and Output 06/06/20 06/07/20 19:00 07:00 Intake Total 400 ml 4250 ml Output Total 2100 ml 8450 ml Balance -1700 ml -4200 ml Intake Oral 400 ml Other 4250 ml Output Urine Total 2100 ml 8450 ml # Bowel Movements 3 General Appearance: WD/WN HEENT: normocephalic Respiratory: chest wall non-tender, lungs clear Cardiovascular: normal peripheral pulses, normal rate Abdomen: normal bowel sounds Microbiology Date/Time Source Procedure Growth Status 06/05/20 05:45 Nasal Nares MRSA Culture - Final NO METHICILLIN RESISTANT STAPH AUREUS... Complete Laboratory Tests 06/07/20 05:15: White Blood Count 10.8, Red Blood Count 4.40L, Hemoglobin 13.7L, Hematocrit 40.5L, Mean Corpuscular Volume 92, Mean Corpuscular Hemoglobin 31.2H, Mean Corpuscular Hemoglobin Concent 33.9, Red Cell Distribution Width 12.1, Platelet Count 232, Mean Platelet Volume 8.4, Neutrophils (%) (Auto) 64.4, Lymphocytes (%) (Auto) 22.5, Monocytes (%) (Auto) 7.4, Eosinophils (%) (Auto) 4.8H, Basophils (%) (Auto) 0.8, Sodium Level 140, Potassium Level 3.7, Chloride Level 107, Carbon Dioxide Level 21, Blood Urea Nitrogen 11, Creatinine 1.0, Estimat Glomerular Filtration Rate > 60, Glucose Level 104, Calcium Level 8.0L Current Medications Medications (Trade) Dose Ordered Sig/Navin Route PRN Reason Start Time Stop Time Status Last Admin Dose Admin Acetaminophen (Tylenol) 650 mg Q4H PRN ORAL FEVER 06/05/20 10:45 07/05/20 10:44 Acetaminophen (Tylenol) 650 mg Q6H PRN ORAL Mild Pain (Pain Scale 1-3) 06/05/20 10:45 07/05/20 10:44 Acetaminophen/ Hydrocodone Bitart ([place] 5/325) 1 tab Q4H PRN ORAL Moderate Pain (Pain Scale 4-6) 06/05/20 10:45 06/12/20 10:44 Atorvastatin Calcium (Lipitor) 20 mg BEDTIME ORAL 06/06/20 21:00 09/04/20 20:59 Calcium Carbonate (Tums) 1,000 mg Q4H PRN ORAL INDIGESTION 06/06/20 11:00 09/04/20 10:59 06/06/20 17:21 Docusate Sodium (Colace) 100 mg TWICE A DAY ORAL 06/05/20 18:00 07/05/20 17:59 06/06/20 17:21 Hydromorphone HCl (Dilaudid) 1 mg Q3H PRN IVP pain score 4-6 06/05/20 10:45 06/12/20 10:44 06/05/20 22:04 Levofloxacin (Levaquin) 500 mg DAILY ORAL 06/06/20 10:00 06/13/20 09:59 06/07/20 08:32 Ondansetron HCl (Zofran) 4 mg Q6H PRN IVP Nausea & Vomiting 06/05/20 10:45 07/05/20 10:44 Temazepam (RestoriL) 7.5 mg DAILYPRN PRN ORAL Insomnia 06/05/20 10:45 06/12/20 10:44 06/05/20 23:01 Assessment/Plan Assessment/Plan IMPRESSION: 1. Postop day #2 normal status post TURP. 2. History of hyperlipidemia. 3. Smoker. DISCUSSION: Hgb 13; Cr 1 DC CBI today. Dc planning for home later today if there is no hematuria. Probable sabillon dc prior to dc DC on [place], Levaquin and Colace Jayson Peace Omar Syed MD Jun 07, 2020 09:20
[2020-06-07 12:00] VITALS: BP 125/76
[2020-06-07 16:00] VITALS: BP 130/79
[2020-06-07] MEDS ORDERED: NS Irrig 1000ml ONE (16:32)
[2020-06-07] MEDS ORDERED: NS Irrig 3000ml IRRIG ONE (16:32)
--- NOTE | 2020-06-08 17:00 | Operative Note - Dictated ---
DATE OF OPERATION: 06/05/2020 PREOPERATIVE DIAGNOSES: Bladder neck contracture, BPH, urinary retention, chronic UTIs. POSTOPERATIVE DIAGNOSES: Bladder neck contracture, BPH, urinary retention, chronic UTIs. OPERATION: Transurethral resection of the prostate. TURRET PRESS OPERATOR: Vasyl Bueno MD ANESTHESIA: General. FINDINGS: A large median lobe protrusion with partial bladder neck obstruction. INDICATIONS FOR PROCEDURE: The patient had TURP several years ago and did well. He recently developed several episodes of UTIs. Cystoscopy showed residual and some regrowth of tissue in the median lobe that is elevating the bladder neck. Treatment options were in great length including all potential complications. He signed a consent. DESCRIPTION OF SURGERY: He was brought to the operating room, placed in lithotomy position, prepped and draped in standard fashion. Under general anesthesia, a resectoscope was introduced into the bladder. Urethra was normal; however, there was a high-riding bladder neck with partially residual median lobe. Bladder was normal. The ureters were in the correct position. Using resectoscope loop, median lobe was completely resected together with partial lateral lobes on the right and the left side. Wide opening of the bladder neck was noted. Also, the BPH was fulgurated. A 24 three-way Esposito catheter was placed and left indwelling with continuous bladder irrigation. The patient was transferred to recovery room in stable condition. No evidence of complications. Vasyl Bueno M.D. DR: NELDA JOB#: [id number] CC:
--- NOTE | 2020-06-10 08:00 | Discharge Summary ---
Discharge Summary Discharge Summary _ DATE OF ADMISSION: 06/05/2020 DATE OF DISCHARGE: 06/07/2020 DISCHARGED BY: Dr. Vasyl Bueno CONSULTANTS: Dr. Slava Francisco BRIEF HOSPITAL COURSE: Patient is a 64-year-old male who is status post TURP several years ago and did not do well. He recently developed several episodes of UTI. Cystoscopy showed residual and regrowth of tissue in the median lobe that is elevating the bladder neck. Patient was admitted and underwent TURP. He tolerated procedure well. Postoperatively, he was continued on bladder irrigation. He was followed by Dr. Zak Francisco. White count was elevated to 16,000 and creatinine has been unchanged at 1.1. Hemoglobin was essentially unchanged. He was continued on bladder irrigation. He was given Levaquin. Blood clots were irrigated from the Esposito catheter. Bladder irrigation was eventually discontinued. There was no hematuria. Patient was cleared for discharge on pain medication, antibiotic and stool softeners. He was discharged home with leg bag and plug irritation port. FINAL DIAGNOSES: Bladder neck contracture, BPH, urinary retention, and chronic UTI status post TURP Hyperlipidemia Smoker DISPOSITION: Patient was discharged home. DISCHARGE MEDICATIONS: Refer to Discharge Medication List. DISCHARGE INSTRUCTIONS: Follow-up in a week. I have been assigned to complete a discharge summary on this account, I was not involved with the patient's management.--MOLLY Pablo Jacqueline Robles NP Jun 10, 2020 08:00
== END 2020-06-07 18:00 | disposition home or self-care (01) | DRG 713 ==
LOC: SDSOVERFLO 05:14 → 3E 10:45
PROC: 0VB08ZZ Excision of Prostate, Via Natural or Artificial Opening Endoscopic (ICD-10-PCS; principal; 2020-06-05 07:30)
DX: N40.1 Benign prostatic hyperplasia with lower urinary tract symptoms (principal); N13.8 Other obstructive and reflux uropathy; N39.0 Urinary tract infection, site not specified; R33.8 Other retention of urine; E78.5 Hyperlipidemia, unspecified; F17.200 Nicotine dependence, unspecified, uncomplicated; Z88.8 Allergy status to other drugs, medicaments and biological substances
CPT/HCPCS: 36415; 80048; 85025; 86850; 86900; 86901; 87081; 94003; 94150; J2250; J2405; J2710; U0002